=== PATIENT | female | born 1970 | race Hispanic/Latino ===

== ENCOUNTER 2017-01-05 15:28 | Outpatient (CLI) | payer OTHER ==
--- NOTE | 2017-01-05 17:22 | MRI ---
MRI BRAIN NONCONTRAST: HISTORY: 46-year-old female with headache, migraine intractable. G43.919. FINDINGS: The ventricles are normal in size and configuration. There is no restricted diffusion, midline shift or any other mass effect, recent intraaxial hemorrhage, or extraaxial fluid collection. There are m ultiple scattered punctate T2-hyperintensities in the cerebral white matter consistent with mild chrome polisher jerica ischemic white matter changes due to mild microvascular atherosclerosis. IMPRESSION: 1. Mild chronic ischemic white matter changes. 2. Otherwise negative. mark POS: KARLY
== END 2017-01-05 15:29 | disposition home or self-care (01) ==
LOC: TBSIIMAG 15:28
PROVIDERS: ATTEND Student in an Organized Health Care Education/Training Program
DX: G43.919 Migraine, unspecified, intractable, without status migrainosus (principal); F43.9 Reaction to severe stress, unspecified; F32.9 Major depressive disorder, single episode, unspecified; M54.2 Cervicalgia
CPT/HCPCS: 70551

== ENCOUNTER 2017-05-23 15:19 | Outpatient (CLI) | payer OTHER | END 2017-05-23 15:20 | disposition home or self-care (01) | LOC: BICULT 15:19 | PROVIDERS: ATTEND Family Medicine | DX: R92.8 Other abnormal and inconclusive findings on diagnostic imaging of breast (principal) ==

== ENCOUNTER 2018-04-28 08:13 | Outpatient (CLI) | payer OTHER ==
--- NOTE | 2018-04-28 10:38 | ULT ---
LIMITED LEFT BREAST ULTRASOUND: 04/28/2018 PROVIDED CLINICAL HISTORY: Left breast mass. COMPARISON: 05/23/2017 FINDINGS: Circumscribed, heterogeneously isoechoic mass at the 10 o'clock position of the left breast is redemo nstrated. There has been interval increase in the size of this mass, measuring about 4.3 cm in great est transverse dimension on the current examination, as compared to approximately 3.6 cm in greatest dimension on the prior examination. Given the sonographic appearance of this mass and its slow inter phyllis growth, benign etiologies, such as fibroadenoma, are favored, though this is not completely certa in. IMPRESSION: BI-RADS category 4-Suspicious abnormality. Surgical consultation regarding excisional biopsy is charlie mmended. Findings were communicated to the patient via an lithographic etcher at 9:22 a.m. on 04/28/2018. CODE CR POS: OFF
--- NOTE | 2018-05-16 12:02 | MMO ---
Bilateral MAMMO Bilat Diag [facility]. CLINICAL HISTORY: Patient is 47 years old and is seen for diagnostic exam. The patient has no family history of breast cancer. The patient has no personal history of cancer. VIEWS: The views performed were: bilateral craniocaudal with tomosynthesis; bilateral mediolateral oblique with tomosynthesis; and bilateral mediolateral. FILMS COMPARED: The present examination has been compared to prior imaging studies performed at [facility] on 05/21/2013, 07/08/2014, 08/18/2015, 11/04/2016, 11/12/2016 and 04/28/2018. MAMMOGRAM FINDINGS: The breasts are heterogeneously dense, which could obscure a lesion on mammography. There is an equal density, oval mass measuring 4.3 cm with circumscribed margins seen in the central region of the left breast. This has increased in size since the prior exam. In the right breast, there are no suspicious masses, calcifications or areas of architectural distortion. IMPRESSION: MASS IN THE LEFT BREAST IS SUSPICIOUS. SURGICAL CONSULTATION FOR EXCISIONAL BIOPSY RECOMMENDED. THE RESULTS OF THIS EXAM WERE SENT TO THE PATIENT. ACR BI-RADS Category 4 - Suspicious abnormality - biopsy should be considered MAMMOGRAPHY NOTE: 1. A negative mammogram report should not delay a biopsy if a dominant of clinically suspicious mass is present. 2. Approximately 10% to 15% of breast cancers are not detected by mammography. 3. Adenosis and dense breasts may obscure an underlying neoplasm.
== END 2018-04-28 08:14 | disposition home or self-care (01) ==
LOC: BICMAMMO 08:13
PROVIDERS: ATTEND Family Medicine
DX: N63.22 Unspecified lump in the left breast, upper inner quadrant (principal)
CPT/HCPCS: 77066; G0279

== ENCOUNTER 2018-06-06 05:57 | Outpatient (CLI) | payer OTHER ==
[2018-06-06 14:08] LABS: #Eosinphils 0.1 thou/uL (0.0-0.7); #Lymphocytes 1.4 thou/uL (1.20-3.40); #Monocytes 0.7 thou/uL (0.11-0.59); #Neutrophils 6.3 thou/uL (1.40-6.50); %Basophils 0.3 % (0.0-1.0); %Eosinophils 1.5 % (0.0-10.0); %Lymphocytes 16.6 % (21.0-51.0); %Monocytes 8.2 % (0.0-10.0); %Neutrophils 73.4 % (42.0-75.0); Hemoglobin 13.5 g/dL (12.0-16.0); Mean Corpuscular HGB CONC 32.9 g/dL (32.0-36.0); Mean Corpuscular Hemoglobin 28.4 pg (27.0-31.0); Mean Corpuscular Volume 86.2 fL (78.0-98.0); Mean Platelet Volume 8.7 fL (7.4-10.4); Platelet Count 286 thou/uL (130-400); RBC Distribution Width 12.5 % (11.5-14.5); Red Blood Cell (RBC) Count 4.74 mill/uL (4.20-5.40); White Blood Cell (WBC) Count 8.6 thou/uL (4.8-10.8)
[2018-06-06 14:28] LABS: Anion Gap 13 mmol/L (10-20); BUN (Urea Nitrogen) 16 mg/dL (7.0-18.7); Calc. Creatinine Clearance 0 mL/min (70-130); Calcium 9.1 mg/dL (7.8-10.44); Carbon Dioxide 22 mmol/L (22-29); Chloride 108 mmol/L (98-107); Estimated GFR-MDRD Greater than 90; Glucose 99 mg/dL (70-105); Potassium 4.2 mmol/L (3.5-5.1); Sodium 139 mmol/L (136-145)
== END 2018-06-06 05:58 | disposition home or self-care (01) ==
LOC: LABBT 05:57
PROVIDERS: ATTEND Surgery
DX: Z01.818 Encounter for other preprocedural examination (principal); N63.20 Unspecified lump in the left breast, unspecified quadrant
CPT/HCPCS: 80048; 85025; 93005; 93010

== ENCOUNTER 2018-06-09 06:01 | Day surgery (SDC) | payer OTHER ==
[2018-06-06 13:49] VITALS: BMI 29.7
[2018-06-09] MEDS ORDERED: Midazolam HCl 2 mg/2 ml Vial ONE (06:14)
[2018-06-09] MEDS ORDERED: Fentanyl 100 MCG/2 ML VIAL ONE (06:14)
[2018-06-09] MEDS ORDERED: Bupivacaine/Epinephrine 0.25% 30 ML VIAL ONE (07:13)
[2018-06-09] MEDS ORDERED: HYDROcodone/Acetaminophen 5/325 mg Tablet ONE (10:43)
[2018-06-09] MEDS ORDERED: PROPOFOL 200 MG/20 ML VIAL ONE (15:21)
[2018-06-09] MEDS ORDERED: ePHEDrine 50 MG/ML VIAL ONE (15:21)
[2018-06-09] MEDS ORDERED: Ondansetron PF 4 MG/2 ML Vial ONE (15:21)
[2018-06-09] MEDS ORDERED: Lidocaine 1% PF 5 ML VIAL ONE (15:21)
[2018-06-09] MEDS ORDERED: PHENYLEPHRINE-NS 100 MCG/ML 10 ML SYRINGE ONE (15:21)
[2018-06-09] MEDS ORDERED: Dexamethasone 20 MG/5 ML VIAL ONE (15:21)
--- NOTE | 2018-06-09 18:00 | PDOC.OP ---
Operative Note - Operative Note Operative Note: PROCEDURE: Left breast biopsy SURGEON: Cecilio Sauceda M.D. DATE: 06/09/2018 PREOPERATIVE DIAGNOSIS: Left breast mass POSTOPERATIVE DIAGNOSIS: Left breast mass HISTORY: Patient was slowly enlarging but benign-appearing breast mass. Due to continued growth biopsy was recommended but the patient decided to proceed with excision without preoperative biopsy. PROCEDURE IN DETAIL: After informed consent was obtained the patient was taken to the operating room where she was placed in supine position and anesthesia was administered. She was prepped and draped in the standard sterile fashion and local anesthesia infused the skin and subcutaneous tissue surrounding the palpable mass in the upper breast. A periareolar incision was made and dissection carried down to the mass which was firm smooth and whitish in appearance. This was dissected free of the surrounding breast tissue and oriented for pathology with a long lateral, short superior, and loop superficial suture. The biopsy cavity was examined and hemostasis obtained using Bovie electrocautery. Additional local anesthesia was infused for postoperative pain control. The subcutaneous tissues were reapproximated with 3- 0 Monocryl suture and additional local anesthesia infused since the biopsy cavity. The skin was then closed with a 4-0 running Monocryl suture and Dermabond dressings were applied. Once the Dermabond was dry a flush dressing was placed and secured with tape. The patient was taken to recovery in good condition. Estimated blood loss was minimal. There were no complications. Specimen is left breast mass.
== END 2018-06-09 11:15 | disposition home or self-care (01) ==
LOC: SDC 06:01
PROVIDERS: ATTEND Surgery
PROC: 0HBU0ZZ Excision of Left Breast, Open Approach (ICD-10-PCS; principal; 2018-06-09)
DX: D24.2 Benign neoplasm of left breast (principal); G43.909 Migraine, unspecified, not intractable, without status migrainosus; F41.9 Anxiety disorder, unspecified; F32.9 Major depressive disorder, single episode, unspecified; I10 Essential (primary) hypertension; Z79.899 Other long term (current) drug therapy
CPT/HCPCS: 88307; J0690; J1100; J2001; J2250; J2405; J2704; J3010; J3490